=== PATIENT | female | born 1965 | race African-American/Black ===

== ENCOUNTER 2023-05-09 18:05 | Inpatient (IN) | payer OTHER ==
[2023-05-09 18:24] VITALS: BMI 30.2
[2023-05-09] MEDS ORDERED: NALOXONE HCL (KLOXXADO) 8 MG SPRAY NS PRN (22:29)
[2023-05-09] MEDS ORDERED: NICOTINE POLACRILEX 2 MG GUM BUC PRN (22:29)
[2023-05-09] MEDS ORDERED: BENZONATATE 200 MG CAPSULE PO PRN (22:29)
[2023-05-09] MEDS ORDERED: LOPERAMIDE HCL 2 MG CAPSULE PO PRN (22:29)
[2023-05-09] MEDS ORDERED: DICYCLOMINE HCL 10 MG CAPSULE PO PRN (22:29)
[2023-05-09] MEDS ORDERED: guaiFENesin 600 MG TABLET.ER (FP) PO PRN (22:29)
[2023-05-09] MEDS ORDERED: BISMUTH SUBSALICYLATE 524 MG/30 ML PO PRN (22:29)
[2023-05-09] MEDS ORDERED: NALOXONE HCL 0.4 MG/ML VIAL IM PRN (22:29)
[2023-05-09] MEDS ORDERED: POLYETHYLENE GLYCOL (HEALTHYLAX) 3350 17 GM PACKET PO PRN (22:29)
[2023-05-09] MEDS ORDERED: MAGNESIUM HYDROX 2400MG/30ML ORAL SUSPENSION 30 ML CUP PO PRN (22:29)
[2023-05-09] MEDS ORDERED: BENZOCAINE/MENTHOL (CHLORASEPTIC ) LOZENGE MM PRN (22:29)
[2023-05-09] MEDS ORDERED: ACETAMINOPHEN 325 MG TABLET (FP) PO PRN (22:29)
[2023-05-09] MEDS ORDERED: IBUPROFEN 400 MG TABLET (FP) PO PRN (22:29)
[2023-05-09] MEDS ORDERED: IBUPROFEN 600 MG TABLET (FP) PO PRN (22:29)
[2023-05-09] MEDS ORDERED: chlordiazePOXIDE HCL 25 MG CAPSULE PO PRN (22:41)
[2023-05-09] MEDS ORDERED: TRIMETHOBENZAMIDE HCL 200MG/2ML INJ IM ONE ×2 (23:02→23:05)
[2023-05-10] MEDS: chlordiazePOXIDE HCL 25 MG CAPSULE PO SCH ×5 (00:14→22:20)
[2023-05-10] MEDS: hydrOXYzine PAMOATE 25 MG CAPSULE (FP) PO PRN ×2 (00:19→10:35)
[2023-05-10] MEDS: METHOCARBAMOL 500 MG TABLET PO PRN ×2 (00:19→10:35)
[2023-05-10] MEDS: ALBUTEROL SO4 HFA INHALER IH PRN ×3 (01:17→10:39)
[2023-05-10] MEDS: ONDANSETRON *ODT* 4 MG TABLET SL PRN (05:51)
[2023-05-10] MEDS ORDERED: ALBUTEROL SO4 2.5/IPRATROPIUM 0.5 INH SOL 3 ML VIAL.NEB. NEB ONE (10:04)
[2023-05-10] MEDS: PRENATAL VITAMINS W/ FOLIC ACID TABLET (FP) PO SCH (10:34)
[2023-05-10] MEDS: NICOTINE 21 MG/24 HOURS TOPICAL PATCH TD SCH (10:47)
[2023-05-10] MEDS: predniSONE 20 MG TABLET (UD) PO SCH (11:08)
[2023-05-10] MEDS: busPIRone HCL 5 MG TABLET PO SCH ×2 (11:42→22:20)
[2023-05-10 11:56] LABS: HEMATOCRIT 39.3 % (32.4-45.2); HEMOGLOBIN 13.3 GM/dL (10.7-15.3); MCH 29.9 pg (25.7-33.7); MCHC 33.8 g/dl (32.0-36.0); MEAN CELL VOLUME 88.5 fl (80-96); MEAN PLT VOLUME 8.5 fl (7.5-11.1); PLATELET COUNT 239 10^3/uL (134-434); RBC 4.44 M/mm3 (3.60-5.2); RDW 13.7 % (11.6-15.6); WHITE BLOOD COUNT 4.3 K/mm3 (4.0-10.0)
[2023-05-10 12:04] LABS: POTASSIUM 4.2 mmol/L (3.5-5.1)
[2023-05-10 12:21] LABS: CALCIUM 8.5 mg/dL (8.5-10.1)
[2023-05-10 12:23] LABS: ALBUMIN 3.5 g/dl (3.4-5.0); BLOOD UREA NITROGEN 16.2 mg/dL (7-18)
[2023-05-10 12:26] LABS: TOT PROT 6.7 g/dl (6.4-8.2)
[2023-05-10 12:28] LABS: BILIRUBIN,TOTAL 0.5 mg/dL (0.2-1)
[2023-05-10] MEDS ORDERED: hydrOXYzine PAMOATE 25 MG CAPSULE (FP) PO ONE (15:45)
[2023-05-10] MEDS ORDERED: METHOCARBAMOL 500 MG TABLET PO ONE (15:45)
[2023-05-10] MEDS ORDERED: MELATONIN 5 MG TABLETS PO SCH (22:00)
[2023-05-10] MEDS: THIAMINE HCL 100 MG TABLET (FP) PO SCH (22:20)
[2023-05-10] MEDS: MONTELUKAST NA 10 MG TABLET PO SCH (22:21)
[2023-05-10] MEDS: QUEtiapine FUMARATE 50 MG TABLET PO SCH (22:21)
[2023-05-11] MEDS: chlordiazePOXIDE HCL 25 MG CAPSULE PO SCH ×4 (05:32→22:32)
[2023-05-11] MEDS: PRENATAL VITAMINS W/ FOLIC ACID TABLET (FP) PO SCH (10:28)
[2023-05-11] MEDS: predniSONE 20 MG TABLET (UD) PO SCH ×2 (10:29→10:30)
[2023-05-11] MEDS: NICOTINE 21 MG/24 HOURS TOPICAL PATCH TD SCH (10:32)
[2023-05-11] MEDS: busPIRone HCL 5 MG TABLET PO SCH ×2 (10:36→22:31)
[2023-05-11] MEDS: MAG HYDROX/AL HYDROX/SIMETH 30 ML UNIT-DOSE CUP PO PRN ×2 (10:38→21:24)
[2023-05-11] MEDS: ALBUTEROL SO4 HFA INHALER IH PRN ×2 (10:39→18:20)
[2023-05-11] MEDS: METHOCARBAMOL 500 MG TABLET PO PRN (17:26)
[2023-05-11] MEDS: QUEtiapine FUMARATE 50 MG TABLET PO SCH (22:31)
[2023-05-11] MEDS: MONTELUKAST NA 10 MG TABLET PO SCH (22:32)
[2023-05-11] MEDS: THIAMINE HCL 100 MG TABLET (FP) PO SCH (22:32)
[2023-05-12] MEDS ORDERED: chlordiazePOXIDE HCL 10 MG CAPSULE PO PRN
[2023-05-12] MEDS: ONDANSETRON *ODT* 4 MG TABLET SL PRN (01:38)
[2023-05-12] MEDS: chlordiazePOXIDE HCL 10 MG CAPSULE PO SCH ×4 (05:15→22:23)
[2023-05-12] MEDS: ALBUTEROL SO4 HFA INHALER IH PRN (10:30)
[2023-05-12] MEDS: predniSONE 20 MG TABLET (UD) PO SCH (10:30)
[2023-05-12] MEDS: PRENATAL VITAMINS W/ FOLIC ACID TABLET (FP) PO SCH (10:30)
[2023-05-12] MEDS: NICOTINE 21 MG/24 HOURS TOPICAL PATCH TD SCH (10:31)
[2023-05-12] MEDS: busPIRone HCL 5 MG TABLET PO SCH (11:00)
[2023-05-12] MEDS: METHOCARBAMOL 500 MG TABLET PO PRN (13:57)
[2023-05-12] MEDS: hydrOXYzine PAMOATE 25 MG CAPSULE (FP) PO PRN (13:57)
[2023-05-12] MEDS: cloNIDine HCL 0.1 MG TABLET PO PRN (14:35)
[2023-05-12] MEDS: QUEtiapine FUMARATE 50 MG TABLET PO SCH (22:23)
[2023-05-12] MEDS: THIAMINE HCL 100 MG TABLET (FP) PO SCH (22:23)
[2023-05-12] MEDS: MONTELUKAST NA 10 MG TABLET PO SCH (22:23)
[2023-05-12] MEDS: MAG HYDROX/AL HYDROX/SIMETH 30 ML UNIT-DOSE CUP PO PRN (23:20)
[2023-05-13] MEDS: chlordiazePOXIDE HCL 10 MG CAPSULE PO SCH ×2 (05:42→17:20)
[2023-05-13] MEDS: predniSONE 20 MG TABLET (UD) PO SCH (10:11)
[2023-05-13] MEDS: NICOTINE 21 MG/24 HOURS TOPICAL PATCH TD SCH (10:12)
[2023-05-13] MEDS: PRENATAL VITAMINS W/ FOLIC ACID TABLET (FP) PO SCH (10:12)
[2023-05-13] MEDS: hydrOXYzine PAMOATE 25 MG CAPSULE (FP) PO PRN ×2 (10:13→18:58)
[2023-05-13] MEDS: METHOCARBAMOL 500 MG TABLET PO PRN ×2 (10:40→18:58)
[2023-05-13] MEDS: cloNIDine HCL 0.1 MG TABLET PO PRN ×2 (13:52→20:35)
[2023-05-13] MEDS: THIAMINE HCL 100 MG TABLET (FP) PO SCH (22:57)
[2023-05-13] MEDS: QUEtiapine FUMARATE 50 MG TABLET PO SCH (22:58)
[2023-05-13] MEDS: MONTELUKAST NA 10 MG TABLET PO SCH (22:59)
[2023-05-14] MEDS ORDERED: chlordiazePOXIDE HCL 10 MG CAPSULE PO ONE (05:00)
[2023-05-14 07:10] VITALS: BP 119/69; PULSE 68; RESP 16; TEMP 97.8
[2023-05-14] MEDS: predniSONE 20 MG TABLET (UD) PO SCH (09:20)
[2023-05-14] MEDS: NICOTINE 21 MG/24 HOURS TOPICAL PATCH TD SCH (09:22)
[2023-05-14] MEDS: ALBUTEROL SO4 HFA INHALER IH PRN (09:26)
== END 2023-05-14 09:43 | disposition home or self-care (01) | DRG 774 ==
LOC: YASAS 18:05 → Y6N 22:40
PROVIDERS: ADMIT Allergy & Immunology; ATTEND Surgery
PROC: HZ2ZZZZ Detoxification Services for Substance Abuse Treatment (ICD-10-PCS; principal; 2023-05-09)
DX: F10.230 Alcohol dependence with withdrawal, uncomplicated (principal); F14.20 Cocaine dependence, uncomplicated; F12.20 Cannabis dependence, uncomplicated; F17.213 Nicotine dependence, cigarettes, with withdrawal; F19.282 Other psychoactive substance dependence with psychoactive substance-induced sleep disorder; F19.280 Other psychoactive substance dependence with psychoactive substance-induced anxiety disorder; B20 Human immunodeficiency virus [HIV] disease; J43.0 Unilateral pulmonary emphysema [MacLeod's syndrome]; J45.20 Mild intermittent asthma, uncomplicated; I10 Essential (primary) hypertension; Z62.810 Personal history of physical and sexual abuse in childhood; Z91.410 Personal history of adult physical and sexual abuse; Z86.73 Personal history of transient ischemic attack (TIA), and cerebral infarction without residual deficits; Z88.0 Allergy status to penicillin; Z91.040 Latex allergy status
CPT/HCPCS: 36415; 71046-TC-FY; 80053; 85027; 86780; 87635; 93005; 93010; 94640; Q0162